=== PATIENT | male | born 1955 | race Caucasian/White ===

== ENCOUNTER 2018-07-08 12:53 | Emergency (ER) | payer OTHER ==
--- NOTE | 2018-07-08 12:59 | EDPHY ---
H & P Time Seen by Provider: 07/08/18 12:59 HPI/ROS: CHIEF COMPLAINT: Ataxia. HISTORY OF PRESENT ILLNESS: The patient presents to the ED with ataxia at 11: 30 a.m. Today while at work. The patient reported he was walking to get a drink and felt as if he was drunk with associated symptoms of disequilibrium. He denies any acute headache, focal numbness or weakness, vision loss or problems with speech. The patient has no prior history of stroke or TIA. The patient does have a history of coronary artery bypass grafting. The patient does not take antiplatelet therapy or anticoagulants. REVIEW OF SYSTEMS: A comprehensive 10 point review of systems is otherwise negative aside from elements mentioned in the history of present illness. Source: Patient Exam Limitations: No limitations - Personal History Tetanus Vaccine Date: UNSURE - Family History Significant Family History: No pertinent family hx - Social History Alcohol Use: None - Physical Exam Exam: General Appearance: Alert, no distress Eyes: Pupils equal and round no pallor or injection ENT, Mouth: Mucous membranes moist Respiratory: There are no retractions, lungs are clear to auscultation Cardiovascular: Regular rate and rhythm Gastrointestinal: Abdomen is soft and nontender, no masses, bowel sounds normal Neurological: Alert and oriented x4, 5/5 strength noted all 4 extremities, no pronator drift, normal sensory exam, cranial nerves 2-12 intact, normal finger to nose, patient exhibits marginal symptoms of truncal ataxia. Skin: Warm and dry, no rashes Musculoskeletal: Neck is supple nontender Extremities: symmetrical, full range of motion Constitutional: Initial Vital Signs Temperature (C) 36.8 C 07/08/18 13:01 Heart Rate 87 07/08/18 13:01 Respiratory Rate 20 07/08/18 13:01 Blood Pressure 171/110 H 07/08/18 13:01 O2 Sat (%) 97 07/08/18 13:01 O2 Delivery Mode Room Air Allergies/Adverse Reactions: fentanyl Allergy (Verified 07/08/18 13:06) levofloxacin [From Levaquin] Allergy (Verified 07/08/18 13:06) midazolam HCl [From Versed] Allergy (Verified 07/08/18 13:06) Home Medications: Medication Instructions Recorded Valtrex 07/08/18 Medical Decision Making - Diagnostics EKG Interpretation: EKG: Complete interpretation has been separately recorded in the [facility] archive. Summary impression: Sinus rhythm, rate 80, single PAC noted Imaging Results: Imaging Impressions Head CT 07/08/18 13:13 Impression: Negative. No acute intracranial hemorrhage or evidence of cortical ischemia. Findings discussed with Emergency Department physician welder assistant, Steve Olsen PA-C on July 08, 2018 at 1335 hours. Head CTA 07/08/18 13:13 Impression: 1. Normal intracranial arterial circulation. No evidence of embolic disease or aneurysm. 2. Patent venous system. CT Angiogram Neck: Findings: The cervicothoracic aorta is normal caliber with minimal calcified plaque, giving rise to normal four-vessel neck anatomy. Bilateral common carotid , carotid bulbs, internal and external carotid arteries and bilateral vertebral arteries are all widely patent. No plaque, flow-limiting stenosis, dissection, or occlusion. CT Neck: The lung apices are well aerated and clear. No pulmonary nodule or mass. No enlarged lymph node, mass, or fluid collection throughout the neck. Numerous surgical clips are scattered throughout the anterior mediastinum, and intact median sternotomy wires in the upper sternum are partially included on the exam. The parotid, submandibular, and thyroid glands are normal. There is moderate to severe multilevel degenerative disk disease, worse at the C5-C6 level. No fracture or bone lesion. Impression: Widely patent carotid and vertebral arteries. No plaque, flow- limiting stenosis, occlusion or dissection. Findings discussed with Emergency Department physician, Dr. Luis Felipe Rolon on July 08, 2018 at 1346 hours. Neck CTA 07/08/18 13:13 Impression: 1. Normal intracranial arterial circulation. No evidence of embolic disease or aneurysm. 2. Patent venous system. CT Angiogram Neck: Findings: The cervicothoracic aorta is normal caliber with minimal calcified plaque, giving rise to normal four-vessel neck anatomy. Bilateral common carotid , carotid bulbs, internal and external carotid arteries and bilateral vertebral arteries are all widely patent. No plaque, flow-limiting stenosis, dissection, or occlusion. CT Neck: The lung apices are well aerated and clear. No pulmonary nodule or mass. No enlarged lymph node, mass, or fluid collection throughout the neck. Numerous surgical clips are scattered throughout the anterior mediastinum, and intact median sternotomy wires in the upper sternum are partially included on the exam. The parotid, submandibular, and thyroid glands are normal. There is moderate to severe multilevel degenerative disk disease, worse at the C5-C6 level. No fracture or bone lesion. Impression: Widely patent carotid and vertebral arteries. No plaque, flow- limiting stenosis, occlusion or dissection. Findings discussed with Emergency Department physician, Dr. Luis Felipe Rolon on July 08, 2018 at 1346 hours. ED Course/Re-evaluation: Patient presents to the ED with complaints of subjective ataxia. The only finding on his neurologic exam is vague disequilibrium. I appreciate no nystagmus with positional changes. Given the onset of his symptoms I did initiate a stroke alert on the patient. He was taken for noncontrast head CT scan. I did place a consult with [facility]. The patient's noncontrast head CT scan demonstrates no evidence of intracranial hemorrhage. Images reviewed by myself and discussed with radiologist Dr. Miquel mendes At 1:30 p.m.. I consulted with Dr. Avila Jean [facility] at 1:30 a.m. He was evaluating the patient through the tele neurology connection. Neurologist evaluated the patient does not feel that tPA is indicated. An MRI of the brain will be obtained to evaluate the possibility of subtle stroke. Patient would very much like to go home if this is negative. I did discuss this with a neurologist who felt this was reasonable. The patient could certainly begin taking a baby aspirin again. This point time we know that he has no evidence of a dissection or thrombosis involving a neck vessel. An MRI of the brain without contrast has been ordered. The patient will be turned over to Dr. Sevilla at shift change pending the results of that study. I reviewed the results of the patient's brain MRI with Dr. Bradley reports there is no evidence of intracranial abnormality stroke. I reviewed the patient's workup with him at 3:00 p.m.. He was offered admission to the hospital for further workup of subtle stroke/TIA however he prefers to go home. He is a competent decision maker. He understands return to the emergency department for markedly worsening symptoms or other concerns. Differential Diagnosis: Differential diagnosis considered includes stroke, TIA, intracranial hemorrhage , labyrinthitis, benign positional vertigo, carotid dissection, vertebral dissection - Data Points Laboratory Results: 07/08/18 07/08/18 14:04 13:10 POC Hgb 16.0 gm/dL gm/dL (13.7-17.5) POC Hct 47 % % (40-51) POC Sodium 142 mEq/L mEq/L (135-145) POC Potassium 3.7 mEq/L mEq/L (3.3-5.0) POC Chloride 103 mEq/L mEq/L (97-110) POC Total CO2 25 mEq/L mEq/L (22-31) POC BUN 13 mg/dL mg/dL (7-23) POC Creatinine 1.0 mg/dL mg/dL (0.7-1.3) POC Glucose 100 mg/dL mg/dL (70-100) POC Troponin I 0.00 ng/mL ng/mL (0.00-0.08) Point of Care Test Results: Chemistry 07/08/18 07/08/18 14:04 13:10 POC Sodium 142 mEq/L mEq/L (135-145) POC Potassium 3.7 mEq/L mEq/L (3.3-5.0) POC Chloride 103 mEq/L mEq/L (97-110) POC Total CO2 25 mEq/L mEq/L (22-31) POC BUN 13 mg/dL mg/dL (7-23) POC Creatinine 1.0 mg/dL mg/dL (0.7-1.3) POC Glucose 100 mg/dL mg/dL (70-100) POC Troponin I 0.00 ng/mL ng/mL (0.00-0.08) ISTAT H&H 07/08/18 13:10 POC Hgb 16.0 gm/dL gm/dL (13.7-17.5) POC Hct 47 % % (40-51) Departure - Departure Disposition: Home, Routine, Self-Care Clinical Impression: Ataxia Condition: Good Instructions: Transient Ischemic Attack (ED) Additional Instructions: 1. I do begin taking a 81 mg aspirin each day. 2. Please schedule a follow-up appointment with the neurologist you have been referred to 3. Return to the ED for acute headache, new neurologic symptoms or other concerns. Referrals: Lillian Sneed MD [Primary Care Provider] - As per Instructions Kelechi Yarbrough MD [Medical Doctor] - As per Instructions
[2018-07-08] MEDS ORDERED: IOPAMIDOL (ISOVUE 370) 100 ML BTL IV ONE (13:15)
--- NOTE | 2018-07-08 13:30 | CPEKG ---
Test Reason : OPEN Blood Pressure : / mmHG Vent. Rate : 080 BPM Atrial Rate : 081 BPM P-R Int : 204 ms QRS Dur : 112 ms QT Int : 383 ms P-R-T Axes : 029 011 062 degrees QTc Int : 442 ms Sinus rhythm Atrial premature complexes Confirmed by Luis Felipe Rolon ([id number]) on 07/08/2018 1:29:40 PM Referred By: Luis Felipe Rooln Confirmed By:Luis Felipe Rolon
--- NOTE | 2018-07-08 13:50 | PDCONSULT ---
[employer] Survey Worker Note: [facility] Note Demographics Consult Type: Acute Stroke First Name: karly Last Name: carissa Date of : 1955 Age: 63 Gender: Male Time of initial page ([place] ): 07/08/2018 13:34 Time of return call ([place] ): 07/08/2018 13:34 Time Ready to Initiate Telemed Consult ([place] ): 07/08/2018 13:34 HPI Additional History (Free Text): 63yo man who was at work. At 1130AM, he had disequilibrium. There is no vertigo. he got up to walk to a water cooler and felt as if he was drunk. He states this feels much different that the BPPV that he has had in the past. he has a weird floating sensation. he does report dry mouth. Associated Symptoms: vomiting, (no swallowing problems), (no vision changes) Quality: (not numbness), (no paralysis), (no slurred speech), (not tingling), (no weakness), (no word finding difficulty) [facility]-- Past Surgical History: CABG Medications: denies medications Exam Additional Neuro Exam: normal gait and able to turn. able to sit up unassisted. NIHSS Time ([place] ): 07/08/2018 13:40 LOC 1a: 0 = Alert; keenly responsive LOC 1b: 0 = Answers both questions correctly LOC Commands: 0 = Performs both tasks correctly Best Gaze: 0 = Normal Visual: 0 = No visual loss Facial Palsy: 0 = Normal symmetrical movements Motor Arm L: 0 = No drift; limb holds 90 (or 45) degrees for full 10 seconds Motor Arm R: 0 = No drift; limb holds 90 (or 45) degrees for full 10 seconds Motor Leg L: 0 = No drift; leg holds 30-degree position for full 5 seconds Motor Leg R: 0 = No drift; leg holds 30-degree position for full 5 seconds Limb Ataxia: 0 = Absent Sensory: 0 = Normal; no sensory loss Best Language: 0 = No aphasia; normal Dysarthria: 0 = Normal Extinction + Inattention: 0 = No abnormality NIHSS: [address]: no bleed Assessment Impression: dizziness sensation; he has NIHSS 0, and has normal gait and able to sit up without assistance Plan Lytic/Intervention: NOT IV or IA candidate tPA Exclusion (< 3hr window): Mild or improving symptoms Blood Pressure Managment: Labetolol Target Blood Pressure: SBP < 220 Labs: B 12, Comprehensive metabolic panel, ESR, HgbA1c, LFT, Lipid Panel, TSH , UDS Imaging: MRI brain without Diagnostic test: echocardiogram without bubble Therapy/Eval: PT/OT, Speech/Swallow therapy consult Medication: aspirin 81mg per day VTE Prophylaxis: SCD, Heparin 5000 units subcutaneously q 12 hours Other: LDL goal less than 70, permissive HTN, telemetry monitoring, I have discussed my recommendations with the referring provider Disposition: admit [employer] Telemedicine: Interactive 2 way audio and visual telecommunication technology was utilized during this visit. Provider Location: [place]
[2018-07-08 14:53] VITALS: BP 135/82
== END 2018-07-08 15:01 | disposition home or self-care (01) ==
DX: R27.0 Ataxia, unspecified (principal); Z79.01 Long term (current) use of anticoagulants; Z95.5 Presence of coronary angioplasty implant and graft
CPT/HCPCS: 70551-PN; 82435-PO; 82565-PO; 82947-PO; 84132-PO; 84295-PO; 84484-ER; 84520-PO; 85014-ER; Q9967